=== PATIENT | male | born 1940 | race Caucasian/White ===

== ENCOUNTER 2016-08-14 13:52 | Emergency (ER) | payer MEDICARE, OTHER ==
--- NOTE | 2016-09-01 15:00 | ER ---
ADMIT: 08/14/2016 RM/LOC: ER [facility] MR#: [id number] [address] [address] [address] [place] [address] Emergency Room Report SEX: M AGE: 76 : 1940 DATE: 08/14/2016 ADDENDUM: A 76-year-old white male, slipped, fell, had pain in his right femur hip. X-ray is negative. At this time, we will discharge him home. Tylenol or Motrin for pain. He should follow up with his Ortho. CONDITION ON DISCHARGE: Good. Galo Bustillos MD/ esperanza JOB #: [id number] CC: Galo Butsillos MD, Attending Physician Vernon Figueroa MD, Family Physician
== END 2016-08-14 16:00 | disposition home or self-care (01) ==
LOC: ER 13:52
DX: S76.011A Strain of muscle, fascia and tendon of right hip, initial encounter (principal); I10 Essential (primary) hypertension; E11.9 Type 2 diabetes mellitus without complications; Z79.899 Other long term (current) drug therapy; W18.30XA Fall on same level, unspecified, initial encounter; Y92.009 Unspecified place in unspecified non-institutional (private) residence as the place of occurrence of the external cause